=== PATIENT | male | born 1980 | race Caucasian/White ===

== ENCOUNTER 2018-06-30 11:14 | Emergency (ER) | payer SELFPAY ==
--- NOTE | 2018-06-30 11:46 | ED.PDOC ---
History of Present Illness - General Chief Complaint: General Stated Complaint: LEFT SHOULDER PAIN Time Seen by Provider: 06/30/18 11:31 Source: patient - History of Present Illness Initial Comments: HE WAS AT WORK AND LEFT DISCOMFORT ON THE LEFT SHOULDER AND THEN HE BECAME SOB. HE ELECTED TO COME TO THE ED AND BE CHEKED. HE HAS BORDERLINE HTN AND TYPE DIABETES. THE PAIN IS 3/10 AND SEEMS TO INCREASE WITH MOVEMENT OF THE LEFT SHOULDER. HE VOICES THAT THREE DAYS WAS HORSING AROUND WITH HIS , COULD BE THAT THEN HE COULD HAVE INJURED HIS LEFT SHOULDER. Timing/Duration: 1-3 hours Severity: mild Improving Factors: rest Worsening Factors: movement Associated Symptoms: shortness of breath Allergies/Adverse Reactions: Allergies NO KNOWN ALLERGY Allergy (Verified 06/30/18 11:45) Home Medications: Ambulatory Orders Diclofenac Potassium 50 mg PO Q8HRS #15 tab 06/30/18 Review of Systems - Review of Systems Constitutional: States: no symptoms reported EENTM: States: no symptoms reported Respiratory: States: short of breath Cardiology: States: other - LEFT ARM PAIN Gastrointestinal/Abdominal: States: no symptoms reported Genitourinary: States: no symptoms reported Musculoskeletal: States: other - LEFT ARM PAIN Neurological: States: no symptoms reported Endocrine: States: no symptoms reported Past Medical History (General) - Patient Medical History Hx Hypertension: Yes Hx Diabetes: Yes Family Medical History - Family History Mother Living Status: Hx Family Diabetes: Yes Hx Family Cancer: Yes Father Hx Family Diabetes: Yes Physical Exam - Physical Exam General Appearance: Alert, No apparent distress, Well Developed, Well Groomed Eye Exam: bilateral normal Ears, Nose, Throat: hearing grossly normal Neck: non-tender, full range of motion, supple Respiratory: chest non-tender, lungs clear, normal breath sounds Cardiovascular/Chest: normal peripheral pulses, no edema Peripheral Pulses: radial,right: 2+, radial,left: 2+ Gastrointestinal/Abdominal: normal bowel sounds, non tender Extremity: normal range of motion, normal inspection, other - MILD TENDEDRNESS TO PALPATION 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 - Results/Orders Results/Orders: EKG: HR OF 68, OH INTERVAL OF 148, QRS OF 86, QTC OF 412, AXES OF 50 DEGREES. IMPRESSION: NORMAL SINUS RHYTHM, NO ACUTE INJURY PATTERN. 06/30/18 11:45 EKG STAT EKG STAT Laboratory Results WBC 6.8 K/mm3 (4.8-10.8) 06/30/18 12:09 RBC 5.42 M/mm3 (4.70-6.10) 06/30/18 12:09 Hgb 16.5 gm/dL (14.0-18.0) 06/30/18 12:09 Hct 47.9 % (42.0-52.0) 06/30/18 12:09 MCV 88.5 fl (80.0-94.0) 06/30/18 12:09 MCH 30.4 pg (27.0-31.0) 06/30/18 12:09 MCHC 34.3 g/dL (33.0-37.0) 06/30/18 12:09 RDW 12.7 % (11.5-14.5) 06/30/18 12:09 Plt Count 209 K/mm3 (130-400) 06/30/18 12:09 MPV 9.3 fl (7.40-10.4) 06/30/18 12:09 Absolute Neuts (auto) 4.00 K/uL (1.8-6.8) 06/30/18 12:09 Absolute Lymphs (auto) 1.90 K/uL (1.0-3.4) 06/30/18 12:09 Absolute Monos (auto) 0.70 K/uL (0.2-0.8) 06/30/18 12:09 Absolute Eos (auto) 0.20 K/uL (0.0-0.4) 06/30/18 12:09 Absolute Basos (auto) 0.10 K/uL (0.0-0.1) 06/30/18 12:09 Neutrophils % 58.4 % (42.0-78.0) 06/30/18 12:09 Lymphocytes % 27.2 % (20.0-50.0) 06/30/18 12:09 Monocytes % 10.5 % (2.0-9.0) H 06/30/18 12:09 Eosinophils % 2.6 % (1.0-5.0) 06/30/18 12:09 Basophils % 1.3 % (0.0-2.0) 06/30/18 12:09 Sodium 134 mmol/L (135-145) L 06/30/18 12:09 Potassium 3.9 mmol/L (3.6-5.0) 06/30/18 12:09 Chloride 101 mmol/L (101-111) 06/30/18 12:09 Carbon Dioxide 22 mmol/L (21-31) 06/30/18 12:09 Anion Gap 14.9 (12-18) 06/30/18 12:09 BUN 12 mg/dL (7-18) 06/30/18 12:09 Creatinine 1.04 mg/dL (0.6-1.3) 06/30/18 12:09 BUN/Creatinine Ratio 11.5 (10-20) 06/30/18 12:09 Random Glucose 283 mg/dL (70-105) H 06/30/18 12:09 Serum Osmolality 278.2 mOsm/L (275-295) 06/30/18 12:09 Calcium 9.0 mg/dL (8.4-10.2) 06/30/18 12:09 Total Bilirubin 0.4 mg/dL (0.2-1.0) 06/30/18 12:09 AST 43 IU/L (10-42) H 06/30/18 12:09 ALT 80 IU/L (10-60) H 06/30/18 12:09 Alkaline Phosphatase 61 IU/L (42-121) 06/30/18 12:09 Troponin I < 0.02 ng/mL (0.01-0.05) 06/30/18 12:09 Serum Total Protein 7.8 gm/dL (6.4-8.2) 06/30/18 12:09 Albumin 4.3 g/dl (3.2-5.5) 06/30/18 12:09 Globulin 3.5 gm/dL (2.3-3.5) 06/30/18 12:09 Albumin/Globulin Ratio 1.2 (1.1-1.9) 06/30/18 12:09 Departure - Departure Clinical Impression: Muscle strain of left shoulder Qualifiers: Encounter type: initial encounter Qualified Code(s): S46.912A - Strain of unsp ecified muscle, fascia and tendon at shoulder and upper arm level, left arm, initial encounter Time of Disposition: 12:56 Disposition: Discharge to Home or Self Care Condition: Good Departure Forms: ED Discharge - Pt. Copy, Patient Portal Self Enrollment Diet: regular diet Referrals: Jasiel Morales MD [Primary Care Provider] - 1-2 Weeks Prescriptions: Diclofenac Potassium 50 mg PO Q8HRS #15 tab Home Medications: Ambulatory Orders Diclofenac Potassium 50 mg PO Q8HRS #15 tab 06/30/18
--- NOTE | 2018-06-30 12:02 | RAD ---
EXAM DESCRIPTION: Chest,1 View CLINICAL HISTORY: 38 years Male, CHEST PAIN COMPARISON: None. TECHNIQUE: AP portable chest. FINDINGS: Heart size is normal with normal pulmonary vascularity. No consolidating infiltrate. No pulmonary mass or worrisome nodule. No pneumothorax or pleural effusion. Bones are unremarkable. IMPRESSION: No acute process is identified in the chest. Electronically signed by: Sb Stratton MD 06/30/2018 11:59 AM VAT WASHER
[2018-06-30 13:15] VITALS: BP 122/85; TEMP 98.2; O2SAT 97
== END 2018-06-30 13:15 | disposition home or self-care (01) ==
LOC: ER 11:14
DX: S46.912A Strain of unspecified muscle, fascia and tendon at shoulder and upper arm level, left arm, initial encounter (principal); R06.02 Shortness of breath; R03.0 Elevated blood-pressure reading, without diagnosis of hypertension; E11.9 Type 2 diabetes mellitus without complications; X58.XXXA Exposure to other specified factors, initial encounter; Y92.9 Unspecified place or not applicable